=== PATIENT | male | born 1995 | race Caucasian/White ===

== ENCOUNTER 2023-03-19 09:04 | Emergency (ER) | payer SELFPAY ==
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
[2023-03-19 09:30] VITALS: BP 150/88; PULSE 76; RESP 18; TEMP 36.8; O2SAT 98; BMI 38.3
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
--- NOTE | 2023-03-23 11:59 | DCPLANNER ---
store loss prevention manager called patient due to no primary care physician - no answer at this time.
== END 2023-03-19 11:03 | disposition home or self-care (01) ==
PROVIDERS: Emergency Provider Physician Assistant
DX: S67.21XA Crushing injury of right hand, initial encounter (principal); W20.8XXA Other cause of strike by thrown, projected or falling object, initial encounter
CPT/HCPCS: 73130; 99283